=== PATIENT | male | born 1945 | race Two or more races ===

== ENCOUNTER 2016-07-13 04:05 | Inpatient (IN) | payer MEDICAID ==
[2016-07-13 04:34] VITALS: BP 148/88
[2016-07-13] MEDS ORDERED: HYDROmorphone 1 mg/mL 1mL Syr IVP PRN (05:03)
[2016-07-13] MEDS: Sodium Chloride 0.9% 1,000 ML IV SCH (05:25)
[2016-07-13] MEDS ORDERED: Pneumococcal Vaccine 0.5 mL Vial IM ONE (10:00)
[2016-07-13 10:06] LABS: % BASOPHILS 0.3 % (0.0-2.0); % EOSINOPHILS 1.1 % (0.0-5.0); % LYMPHOCYTES 14.2 % (20.0-50.0); % MONOCYTES 5.2 % (2.0-10.0); % NEUTROPHILS 79.2 % (40.0-80.0); HEMATOCRIT 43.1 % (39.0-49.0); HEMOGLOBIN 14.5 gm/dL (12.6-17.4); MEAN CELL VOLUME 86.5 fl (80-99); MEAN CORPUSCULAR HEMOGLOBIN 29.1 pg (27.0-31.0); MEAN CORPUSCULAR HGB CONC 33.6 pg (28.0-36.0); MEAN PLATELET VOLUME 9.3 fl; NEUTROPHILE ABSOLUTE 9.3 Th/cmm (1.8-8.0); PLATELET COUNT 217 Th/cmm (150-400); RED BLOOD COUNT 4.98 Mil/cmm (3.80-5.80); RED CELL DISTRIBUTION WIDTH 13.5 % (11.5-20.0); WHITE BLOOD COUNT 11.6 Th/cmm (4.8-10.8)
--- NOTE | 2016-07-13 10:07 | Diagnostic Imaging Report ---
KUB History: Small bowel obstruction Comparison: None Findings: Few dilated loops of small bowel are seen including dialysis small bowel loops with fluid contents along the left hemiabdomen. Degenerative changes of the spine are noted. IMPRESSION: Few dilated loops of small bowel noted. Findings are nonspecific, however, a partial small bowel obstructive process cannot be excluded. If clinically indicated CT examination preferably with oral contrast or small bowel follow-through procedure may be obtained for further assessment.
[2016-07-13 10:27] LABS: ALKALINE PHOSPHATASE 62 U/L (34-104); ANION GAP 11.1 (7.0-16.0); BILIRUBIN,TOTAL 0.6 mg/dL (0.3-1.0); BUN - UREA NITROGEN 9 mg/dL (7-25); BUN/CREATININE RATIO 11.3; CALCIUM SERUM 9.6 mg/dL (8.6-10.3); CARBON DIOXIDE 24.3 mEq/L (21.0-31.0); CHLORIDE 103 mEq/L (98-107); CREATININE - SERUM 0.8 mg/dL (0.7-1.3); GLUCOSE 162 mg/dL (70-105); POTASSIUM SERUM 3.4 mEq/L (3.5-5.1); SGOT 23 U/L (13-39); SGPT/ALT 23 U/L (7-52); SODIUM SERUM 135 mEq/L (136-145)
--- NOTE | 2016-07-13 11:03 | General Progress Note ---
Subjective - Review of Systems Service Date: 07/13/16 Subjective: small bowel series ordered Objective - Results Result Diagrams: 07/13/16 09:30 07/13/16 09:30 Recent Labs: Laboratory Last Values WBC 11.6 Th/cmm (4.8-10.8) H 07/13/16 09:30 RBC 4.98 Mil/cmm (3.80-5.80) 07/13/16 09:30 Hgb 14.5 gm/dL (12.6-17.4) 07/13/16 09:30 Hct 43.1 % (39.0-49.0) 07/13/16 09:30 MCV 86.5 fl (80-99) 07/13/16 09:30 MCH 29.1 pg (27.0-31.0) 07/13/16 09:30 MCHC Differential 33.6 pg (28.0-36.0) 07/13/16 09:30 RDW 13.5 % (11.5-20.0) 07/13/16 09:30 Plt Count 217 Th/cmm (150-400) 07/13/16 09:30 MPV 9.3 fl 07/13/16 09:30 Neutrophils % 79.2 % (40.0-80.0) 07/13/16 09:30 Lymphocytes % 14.2 % (20.0-50.0) L 07/13/16 09:30 Monocytes % 5.2 % (2.0-10.0) 07/13/16 09:30 Eosinophils % 1.1 % (0.0-5.0) 07/13/16 09:30 Basophils % 0.3 % (0.0-2.0) 07/13/16 09:30 Sodium 135 mEq/L (136-145) L 07/13/16 09:30 Potassium 3.4 mEq/L (3.5-5.1) L 07/13/16 09:30 Chloride 103 mEq/L (98-107) 07/13/16 09:30 Carbon Dioxide 24.3 mEq/L (21.0-31.0) 07/13/16 09:30 Anion Gap 11.1 (7.0-16.0) 07/13/16 09:30 BUN 9 mg/dL (7-25) 07/13/16 09:30 Creatinine 0.8 mg/dL (0.7-1.3) 07/13/16 09:30 Est GFR ( Amer) TNP 07/13/16 09:30 Est GFR (Non-Af Amer) TNP 07/13/16 09:30 BUN/Creatinine Ratio 11.3 07/13/16 09:30 Glucose 162 mg/dL (70-105) H 07/13/16 09:30 POC Glucose 150 MG/DL (70 - 105) H 07/13/16 07:32 Calcium 9.6 mg/dL (8.6-10.3) 07/13/16 09:30 Total Bilirubin 0.6 mg/dL (0.3-1.0) 07/13/16 09:30 AST 23 U/L (13-39) 07/13/16 09:30 ALT 23 U/L (7-52) 07/13/16 09:30 Alkaline Phosphatase 62 U/L (34-104) 07/13/16 09:30 Total Protein 8.2 gm/dL (6.0-8.3) 07/13/16 09:30 Albumin 4.1 gm/dL (4.2-5.5) L 07/13/16 09:30 Globulin 4.1 gm/dL 07/13/16 09:30 Albumin/Globulin Ratio 1.0 (1.0-1.8) 07/13/16 09:30 - Physical Exam Vitals and I&O: Vital Signs Temp 97.7 F 07/13/16 07:47 Pulse 81 07/13/16 07:47 Resp 19 07/13/16 08:00 BP 135/85 07/13/16 07:47 Pulse Ox 92 07/13/16 07:47 Intake & Output 07/12/16 07/13/16 07/13/16 18:59 06:59 18:59 Weight (lbs) 97.522 kg Other: # Voids 1 Active Medications: Current Medications Clonidine HCl (Catapres) 0.1 mg PO Q8HR PRN PRN Reason: SBP >160 Stop: 09/11/16 08:14 Hydromorphone HCl (Dilaudid) 1 mg IVP Q8HR PRN PRN Reason: Pain (Moderate) Stop: 09/11/16 05:02 Last Admin: 07/13/16 05:40 Dose: 1 mg Sodium Chloride (Nacl 0.9%) 1,000 mls @ 100 mls/hr IV .Q10H [facility] Stop: 09/11/16 05:01 Last Admin: 07/13/16 05:25 Dose: 100 mls/hr Insulin Aspart (Novolog Insulin Sliding Scale) 0 units SUBQ Q6HR [facility] PRN Reason: Protocol Stop: 09/11/16 11:59 Pantoprazole Sodium (Protonix) 40 mg IVP DAILY [facility] Stop: 09/11/16 08:59 Last Admin: 07/13/16 09:44 Dose: 40 mg
--- NOTE | 2016-07-13 11:50 | History & Physical ---
CHIEF COMPLAINT: Abdominal pain. HISTORY OF PRESENT ILLNESS: This is the case of a 70-year-old male who referred that 2 days ago, he started with right-sided abdominal pain. The patient referred the pain increased, reason why he went to [facility] Emergency Room for evaluation and treatment. During the evaluation in [facility], CT scan was done and after review, the diagnosis of small bowel obstruction was done. The patient was transferred to this hospital to continue treatment. PAST MEDICAL HISTORY: The patient has past medical history of diabetes mellitus, hypertension, BPH, gastritis. SOCIAL HISTORY: The patient lives with family at home. The patient denies use of alcohol or drugs. MEDICATIONS: Reviewed. ALLERGIES: No known allergies. REVIEW OF SYSTEMS: LUNGS: The patient denies shortness of breath. HEART: The patient denies chest pain. ABDOMEN: The patient referred abdominal pain in the right side and some abdominal distention. EXTREMITIES: Unremarkable. PHYSICAL EXAMINATION: GENERAL: Does reveal a fairly nourished and developed male, awake, alert, in no acute distress. HEENT: Head is normocephalic and atraumatic. Eyes: Pupils reactive to light. Nose: No evidence of nasal obstruction. Ears: No evidence of any discharge. Mouth: Fairly ____. LUNGS: Bilateral air entry. No wheezing, no crackles. HEART: Regular rate and rhythmic. ABDOMEN: Soft, little bit distended. Bowel sound is diminished. EXTREMITIES: No edema. NEUROLOGICAL: The patient is awake, alert, in no acute distress. Nerves 2-12 grossly intact. No neurological deficit at this moment. IMPRESSION: 1. Small bowel obstruction. 2. Diabetes mellitus. 3. Hypertension. 4. Benign prostatic hypertrophy. 5. Gastritis. PLAN: 1. The patient will be admitted in medical surgical floor. 2. NG tube. 3. N.p.o. 4. Consult with GI. 5. Insulin sliding scale. 6. CBC, CMP at a.m. 7. IV normal saline. JOB# [id number]
[2016-07-13] MEDS: INSULIN ASPART SLIDING SCALE 100 UNITS/ML UNIT SUBQ SCH ×2 (12:17→18:24)
[2016-07-13] MEDS ORDERED: Diatrizoate Meglumine/Diatri 30 mL Sol PO ONE (13:39)
--- NOTE | 2016-07-13 17:39 | Admit Criteria Form ---
Admit Criteria Forms - Admit Criteria Diagnosis: ABDOMINAL PAIN Clinical Indications for Admission to Inpatient Care (Place 'X' for any and all applicable criteria): Admission is indicated for ANY ONE of the following(1)(2)(3)(4)(5): [X]I. Inpatient admission required rather than observation care (Also use Abdominal Pain: Observation Care, as appropriate) because of ANY ONE of the following: [ ]a) Severe pain requiring acute inpatient management [ ]b) Identification of etiology/finding that requires inpatient care (eg, aortic dissection, free air) [ ]c) Absent bowel sounds with complete ileus(6) [ ]d) Suspected toxic megacolon [ ]e) Severe electrolyte abnormalities requiring inpatient care [ ]f) High fever or infection requiring inpatient admission as indicated by ANY ONE of following(7)(8): [ ] i) Appropriate outpatient or observational care antimicrobial treatment unavailable, not effective, or not feasible [ ] ii) Documented bacteremia [ ] iii) Temperature > 104.9 degrees F (oral) [ ] iv) T >103.1 F (oral) or < 96.8 F(rectal) that does not respond to all emergency treatment measures [X]g) Signs of intestinal obstruction [B] [ ]h) Hemodynamic instability [ ]i) IV fluid to replace significant ongoing losses (greater than 3 L/m2 per day) (12)(13) [ ]j) Percutaneous or open drainage (eg, abscess, biliary tract ) procedures [ ]k) Parenteral nutrition regimen that must be implemented on inpatient basis [ ]l) Other condition,treatment or monitoring requiring inpatient admission. [ ]II. Peritoneal signs present [ ]III. Surgery needed that cannot be performed on an ambulatory basis. [X]IV. Evaluation requires patient to not eat or drink for extended period ( eg, more than 24 hours). [ ]V. Contraindications and/or Inappropriate clinical situations for Observational Care in patients with abdominal pain, when ANY ONE of the following is required: [ ]a) Thorough evaluation is required to prevent catastrophic events due to delays in diagnosing (e.g.Mesenteric ischemia) 1,3 [ ]b) Patient with severe pathology or with chronic symptoms unlikely to improve in the ED stay (3) [ ]. General contraindications and/or Inappropriate clinical situations for Observational Care in patients with abdominal pain, when ANY ONE of the following is required: [ ]a) Prediction of prolongation of LOS based on ANY ONE of the following may be considered as a contraindication for observational care 2, 3, 4, 5, 6, 7, 8, 9, 10, 11 [ ]i) Age > 65 yrs. [ ]ii) Patient arriving by ambulance [ ]iii) Patient with high acuity [ ]iv) Patient requiring vital sign monitoring [ ]v) Patient on IV medication [ ]b) Systolic blood pressures 180mmHg 3,12 [ ]c) Patient with altered mental status including delirium and other alteration of consciousness, (3) [ ]d) Patient whose discharge disposition will be to a fci home or rehabilitation home should not be managed in Emergency Department Observation Unit. CMS rule requires 3 days hospital stay before such placement.3,13 [ ]e) Patient with failure to thrive due to broad array of etiologies 3,16,17 [ ]f) Inability to ambulate 3,14 Extended stay beyond goal length of stay may be needed for(2)(3): [ ]a) Persistent abdominal pain with suspected intra-abdominal process [ ]b) Diagnosed condition requiring continued stay (e.g., pancreatitis, complicated diverticulitis) [ ]c) Surgery (e.g., colectomy) The original [employer] content created by [employer] has been revised. The portions of the content which have been revised are identified through the use of italic text or in bold, and [facility] has neither reviewed nor approved the modified material.All other unmodified content is copyright [facility]. Please see references footnoted in the original [facility] edition 2016 Admit Criteria Met?: Yes
[2016-07-13] MEDS ORDERED: Albuterol Nebulizer 2.5mg/3mL HHN PRN (23:48)
--- NOTE | 2016-07-14 00:25 | Consultation ---
REASON FOR CONSULTATION: Small-bowel obstruction. HISTORY OF PRESENT ILLNESS: This consult was obtained through the courtesy of Dr. Jamil Mustafa for this 70-year-old with history of diabetes, hypertension, benign prostatic hypertrophy, presented to [place] with abdominal pain and nausea of 1 day duration, found to have possible small-bowel obstruction. The patient was sent here for further evaluation. The patient denies any hematemesis, melena or hematochezia. The patient denies any weight loss. He had a bowel movement yesterday. PAST MEDICAL HISTORY: Diabetes, hypertension, hyperlipidemia. PAST SURGICAL HISTORY: Negative. SOCIAL HISTORY: Denies smoking, alcohol or drugs. FAMILY HISTORY: Mother of cancer, but he states it is not GI. ALLERGIES: No known drug allergies. MEDICATIONS: The patient is on Dilaudid, Protonix, clonidine. REVIEW OF SYSTEMS: No weight loss, no hematemesis, no melena, no hematochezia. He has abdominal pain, was diffuse of 2 days' duration. PHYSICAL EXAMINATION: GENERAL: The patient is awake, oriented to self, place, and time, in moderate distress secondary to pain. He has an NG tube to suction. VITAL SIGNS: Blood pressure 135/85, heart rate 81, respiratory rate 19, temperature is 97.8. HEAD AND NECK: Pupils reactive to light and accommodation. Extraocular muscles intact. Sclerae anicteric. Conjunctivae not pale. Oral cavity, no lesion. NECK: Supple. No jugular venous distention. No carotid bruit or lymph node. CHEST: Good respiratory movements. LUNGS: Clear to auscultation. CARDIOVASCULAR SYSTEM: Regular rate and rhythm. No murmur or gallop. ABDOMEN: Firm. Distended. There are decreased bowel sounds. EXTREMITIES: Lower extremities, no edema. Good peripheral pulses. CENTRAL NERVOUS SYSTEM: Grossly nonfocal. LABORATORY DATA: No new labs here. At [place], white count was normal. CAT scan done at [place] showed distended loops of bowel, some area of transition, some fecalization of intestine and decompressed distal parts, suggestive of partial obstruction. IMPRESSION: A 70-year-old presenting with abdominal pain and nausea, possible bowel obstruction. ASSESSMENT AND PLAN: Possible small-bowel obstruction, rule out partial obstruction versus ileus versus enteritis versus fecal impaction. RECOMMENDATIONS: 1. N.p.o. 2. NG to low intermittent suction. 3. Surgical consultation. 4. Small bowel follow through. 4. Further recommendations to follow. Other medical problems such as diabetes, hypertension and benign prostatic hypertrophy per Dr. Jamil Mustafa. Thank you, Dr. Jamil Mustafa, for allowing me to participate in the care of the patient. If you have any further questions, please let me know. JOB# [id number] [email or web address]
[2016-07-14 05:36] LABS: % BASOPHILS 0.6 % (0.0-2.0); % EOSINOPHILS 1.9 % (0.0-5.0); % MONOCYTES 6.6 % (2.0-10.0); % NEUTROPHILS 69.9 % (40.0-80.0); HEMOGLOBIN 14.3 gm/dL (12.6-17.4); MEAN CELL VOLUME 86.6 fl (80-99); MEAN CORPUSCULAR HEMOGLOBIN 29.4 pg (27.0-31.0); MEAN PLATELET VOLUME 9.1 fl; NEUTROPHILE ABSOLUTE 6.4 Th/cmm (1.8-8.0); PLATELET COUNT 209 Th/cmm (150-400); RED BLOOD COUNT 4.85 Mil/cmm (3.80-5.80); RED CELL DISTRIBUTION WIDTH 13.8 % (11.5-20.0); WHITE BLOOD COUNT 9.3 Th/cmm (4.8-10.8)
[2016-07-14] MEDS: Sodium Chloride 0.9% 1,000 ML IV SCH (05:57)
[2016-07-14 05:58] LABS: ALKALINE PHOSPHATASE 56 U/L (34-104); ANION GAP 8.9 (7.0-16.0); BILIRUBIN,TOTAL 0.7 mg/dL (0.3-1.0); BUN - UREA NITROGEN 10 mg/dL (7-25); BUN/CREATININE RATIO 11.1; CALCIUM SERUM 9.5 mg/dL (8.6-10.3); CARBON DIOXIDE 25.5 mEq/L (21.0-31.0); CHLORIDE 106 mEq/L (98-107); CREATININE - SERUM 0.9 mg/dL (0.7-1.3); GLUCOSE 136 mg/dL (70-105); POTASSIUM SERUM 3.4 mEq/L (3.5-5.1); SGOT 20 U/L (13-39); SGPT/ALT 20 U/L (7-52); SODIUM SERUM 137 mEq/L (136-145)
[2016-07-14] MEDS: INSULIN ASPART SLIDING SCALE 100 UNITS/ML UNIT SUBQ SCH ×4 (05:58→18:59)
--- NOTE | 2016-07-14 07:57 | General Progress Note ---
Subjective - Review of Systems Service Date: 07/14/26 Subjective: I feel better Objective - Results Result Diagrams: 07/14/16 05:06 07/14/16 05:06 Recent Labs: Laboratory Last Values WBC 9.3 Th/cmm (4.8-10.8) 07/14/16 05:06 RBC 4.85 Mil/cmm (3.80-5.80) 07/14/16 05:06 Hgb 14.3 gm/dL (12.6-17.4) 07/14/16 05:06 Hct 42.0 % (39.0-49.0) 07/14/16 05:06 MCV 86.6 fl (80-99) 07/14/16 05:06 MCH 29.4 pg (27.0-31.0) 07/14/16 05:06 MCHC Differential 34.0 pg (28.0-36.0) 07/14/16 05:06 RDW 13.8 % (11.5-20.0) 07/14/16 05:06 Plt Count 209 Th/cmm (150-400) 07/14/16 05:06 MPV 9.1 fl 07/14/16 05:06 Neutrophils % 69.9 % (40.0-80.0) 07/14/16 05:06 Lymphocytes % 21.0 % (20.0-50.0) 07/14/16 05:06 Monocytes % 6.6 % (2.0-10.0) 07/14/16 05:06 Eosinophils % 1.9 % (0.0-5.0) 07/14/16 05:06 Basophils % 0.6 % (0.0-2.0) 07/14/16 05:06 Sodium 137 mEq/L (136-145) 07/14/16 05:06 Potassium 3.4 mEq/L (3.5-5.1) L 07/14/16 05:06 Chloride 106 mEq/L (98-107) 07/14/16 05:06 Carbon Dioxide 25.5 mEq/L (21.0-31.0) 07/14/16 05:06 Anion Gap 8.9 (7.0-16.0) 07/14/16 05:06 BUN 10 mg/dL (7-25) 07/14/16 05:06 Creatinine 0.9 mg/dL (0.7-1.3) 07/14/16 05:06 Est GFR ( Amer) TNP 07/14/16 05:06 Est GFR (Non-Af Amer) TNP 07/14/16 05:06 BUN/Creatinine Ratio 11.1 07/14/16 05:06 Glucose 136 mg/dL (70-105) H 07/14/16 05:06 POC Glucose 128 MG/DL (70 - 105) H 07/14/16 00:00 Calcium 9.5 mg/dL (8.6-10.3) 07/14/16 05:06 Total Bilirubin 0.7 mg/dL (0.3-1.0) 07/14/16 05:06 AST 20 U/L (13-39) 07/14/16 05:06 ALT 20 U/L (7-52) 07/14/16 05:06 Alkaline Phosphatase 56 U/L (34-104) 07/14/16 05:06 Total Protein 7.7 gm/dL (6.0-8.3) 07/14/16 05:06 Albumin 3.8 gm/dL (4.2-5.5) L 07/14/16 05:06 Globulin 3.9 gm/dL 07/14/16 05:06 Albumin/Globulin Ratio 1.0 (1.0-1.8) 07/14/16 05:06 - Physical Exam Vitals and I&O: Vital Signs Temp 99 F 07/14/16 04:00 Pulse 85 07/14/16 07:32 Resp 20 07/14/16 07:32 BP 128/76 07/14/16 04:00 Pulse Ox 93 07/14/16 07:32 Intake & Output 07/13/16 07/14/16 07/14/16 18:59 06:59 18:59 Intake Total 1000 Balance 1000 Intake: Intake, IV Amount 1000 Sodium Chloride 0.9% 1, 1000 000 ml @ 100 mls/hr IV . Q10H [facility] Rx#:[id number] Other: # Voids 1 2 # Bowel Movements 2 1 Active Medications: Current Medications Albuterol Sulfate (Albuterol 2.5mg/3ml Neb Ud) 2.5 mg HHN Q4H PRN PRN Reason: cough Stop: 09/11/16 23:47 Last Admin: 07/14/16 00:58 Dose: 2.5 mg Clonidine HCl (Catapres) 0.1 mg PO Q8HR PRN PRN Reason: SBP >160 Stop: 09/11/16 08:14 Hydromorphone HCl (Dilaudid) 1 mg IVP Q8HR PRN PRN Reason: Pain (Moderate) Stop: 09/11/16 05:02 Last Admin: 07/13/16 05:40 Dose: 1 mg Sodium Chloride (Nacl 0.9%) 1,000 mls @ 100 mls/hr IV .Q10H [facility] Stop: 09/11/16 05:01 Last Admin: 07/14/16 05:57 Dose: 100 mls/hr Insulin Aspart (Novolog Insulin Sliding Scale) 0 units SUBQ Q6HR [facility] PRN Reason: Protocol Stop: 09/11/16 11:59 Last Admin: 07/14/16 06:24 Dose: Not Given Pantoprazole Sodium (Protonix) 40 mg IVP DAILY [facility] Stop: 09/11/16 08:59 Last Admin: 07/13/16 09:44 Dose: 40 mg General: Alert, Oriented x3, Cooperative, No acute distress HEENT: Atraumatic Neck: Supple Cardiovascular: Regular rate Lungs: Clear to auscultation Abdomen: Bowel sounds, Soft Extremities: Other (No edema) Neurological: Normal gait Skin: Other ([place] and dry) Psych/Mental Status: Mental status NL Assessment/Plan - Assessment Assessment: Patient is awake, alert, in no acute distress. Dx: SBO. Today BS is better and had 3 bowel movement. - Plan Plan: NG tube will be DC. Soft diet is started.
--- NOTE | 2016-07-14 10:39 | Diagnostic Imaging Report ---
Small bowel follow-through The colon abdominal distention, pain Water-soluble contrast was instilled into the stomach per nasogastric tube. The exam demonstrates delayed gastric emptying. Sequential radiographs demonstrate progression of contrast through nondilated small bowel. Contrast is seen within nondilated large bowel and within the rectal region at 6 hours. IMPRESSION: 1. Delayed gastric emptying. Significance should be correlated clinically. No definite evidence of kushal obstruction.
--- NOTE | 2016-07-14 14:09 | General Progress Note ---
Subjective - Review of Systems Service Date: 07/14/16 Events since last encounter: labs ok SBO series - no obst had BM, pain is less start oral intake Subjective: small bowel series ordered Objective - Results Result Diagrams: 07/14/16 05:06 07/14/16 05:06 Recent Labs: Laboratory Last Values WBC 9.3 Th/cmm (4.8-10.8) 07/14/16 05:06 RBC 4.85 Mil/cmm (3.80-5.80) 07/14/16 05:06 Hgb 14.3 gm/dL (12.6-17.4) 07/14/16 05:06 Hct 42.0 % (39.0-49.0) 07/14/16 05:06 MCV 86.6 fl (80-99) 07/14/16 05:06 MCH 29.4 pg (27.0-31.0) 07/14/16 05:06 MCHC Differential 34.0 pg (28.0-36.0) 07/14/16 05:06 RDW 13.8 % (11.5-20.0) 07/14/16 05:06 Plt Count 209 Th/cmm (150-400) 07/14/16 05:06 MPV 9.1 fl 07/14/16 05:06 Neutrophils % 69.9 % (40.0-80.0) 07/14/16 05:06 Lymphocytes % 21.0 % (20.0-50.0) 07/14/16 05:06 Monocytes % 6.6 % (2.0-10.0) 07/14/16 05:06 Eosinophils % 1.9 % (0.0-5.0) 07/14/16 05:06 Basophils % 0.6 % (0.0-2.0) 07/14/16 05:06 Sodium 137 mEq/L (136-145) 07/14/16 05:06 Potassium 3.4 mEq/L (3.5-5.1) L 07/14/16 05:06 Chloride 106 mEq/L (98-107) 07/14/16 05:06 Carbon Dioxide 25.5 mEq/L (21.0-31.0) 07/14/16 05:06 Anion Gap 8.9 (7.0-16.0) 07/14/16 05:06 BUN 10 mg/dL (7-25) 07/14/16 05:06 Creatinine 0.9 mg/dL (0.7-1.3) 07/14/16 05:06 Est GFR ( Amer) TNP 07/14/16 05:06 Est GFR (Non-Af Amer) TNP 07/14/16 05:06 BUN/Creatinine Ratio 11.1 07/14/16 05:06 Glucose 136 mg/dL (70-105) H 07/14/16 05:06 POC Glucose 210 MG/DL (70 - 105) H 07/14/16 12:03 Calcium 9.5 mg/dL (8.6-10.3) 07/14/16 05:06 Total Bilirubin 0.7 mg/dL (0.3-1.0) 07/14/16 05:06 AST 20 U/L (13-39) 07/14/16 05:06 ALT 20 U/L (7-52) 07/14/16 05:06 Alkaline Phosphatase 56 U/L (34-104) 07/14/16 05:06 Total Protein 7.7 gm/dL (6.0-8.3) 07/14/16 05:06 Albumin 3.8 gm/dL (4.2-5.5) L 07/14/16 05:06 Globulin 3.9 gm/dL 07/14/16 05:06 Albumin/Globulin Ratio 1.0 (1.0-1.8) 07/14/16 05:06 - Physical Exam Vitals and I&O: Vital Signs Temp 98.7 F 07/14/16 11:50 Pulse 95 07/14/16 11:50 Resp 19 07/14/16 11:50 BP 144/71 07/14/16 11:50 Pulse Ox 95 07/14/16 11:50 Intake & Output 07/13/16 07/14/16 07/14/16 18:59 06:59 18:59 Intake Total 1000 Balance 1000 Intake: Intake, IV Amount 1000 Sodium Chloride 0.9% 1, 1000 000 ml @ 100 mls/hr IV . Q10H [facility] Rx#:[id number] Other: # Voids 1 2 # Bowel Movements 2 1 Active Medications: Current Medications Albuterol Sulfate (Albuterol 2.5mg/3ml Neb Ud) 2.5 mg HHN Q4H PRN PRN Reason: cough Stop: 09/11/16 23:47 Last Admin: 07/14/16 00:58 Dose: 2.5 mg Clonidine HCl (Catapres) 0.1 mg PO Q8HR PRN PRN Reason: SBP >160 Stop: 09/11/16 08:14 Hydromorphone HCl (Dilaudid) 1 mg IVP Q8HR PRN PRN Reason: Pain (Moderate) Stop: 09/11/16 05:02 Last Admin: 07/13/16 05:40 Dose: 1 mg Sodium Chloride (Nacl 0.9%) 1,000 mls @ 100 mls/hr IV .Q10H [facility] Stop: 09/11/16 05:01 Last Admin: 07/14/16 05:57 Dose: 100 mls/hr Insulin Aspart (Novolog Insulin Sliding Scale) 0 units SUBQ Q6HR [facility] PRN Reason: Protocol Stop: 09/11/16 11:59 Last Admin: 07/14/16 12:04 Dose: Not Given Pantoprazole Sodium (Protonix) 40 mg IVP DAILY [facility] Stop: 09/11/16 08:59 Last Admin: 07/14/16 09:04 Dose: 40 mg
[2016-07-15] MEDS: INSULIN ASPART SLIDING SCALE 100 UNITS/ML UNIT SUBQ SCH ×2 (00:39→06:26)
[2016-07-15 09:02] LABS: % BASOPHILS 0.4 % (0.0-2.0); % EOSINOPHILS 5.1 % (0.0-5.0); % LYMPHOCYTES 26.5 % (20.0-50.0); % MONOCYTES 7.2 % (2.0-10.0); % NEUTROPHILS 60.8 % (40.0-80.0); HEMOGLOBIN 14.3 gm/dL (12.6-17.4); MEAN CELL VOLUME 87.1 fl (80-99); MEAN CORPUSCULAR HEMOGLOBIN 29.1 pg (27.0-31.0); MEAN CORPUSCULAR HGB CONC 33.4 pg (28.0-36.0); MEAN PLATELET VOLUME 9.3 fl; NEUTROPHILE ABSOLUTE 4.5 Th/cmm (1.8-8.0); PLATELET COUNT 198 Th/cmm (150-400); RED BLOOD COUNT 4.93 Mil/cmm (3.80-5.80); RED CELL DISTRIBUTION WIDTH 13.5 % (11.5-20.0)
[2016-07-15 09:12] LABS: WHITE BLOOD COUNT 7.3 Th/cmm (4.8-10.8)
[2016-07-15 09:16] LABS: ALKALINE PHOSPHATASE 55 U/L (34-104); ANION GAP 11.1 (7.0-16.0); BILIRUBIN,TOTAL 0.8 mg/dL (0.3-1.0); BUN - UREA NITROGEN 14 mg/dL (7-25); BUN/CREATININE RATIO 15.6; CALCIUM SERUM 9.2 mg/dL (8.6-10.3); CARBON DIOXIDE 23.1 mEq/L (21.0-31.0); CHLORIDE 107 mEq/L (98-107); CREATININE - SERUM 0.9 mg/dL (0.7-1.3); GLUCOSE 236 mg/dL (70-105); POTASSIUM SERUM 3.2 mEq/L (3.5-5.1); SGOT 27 U/L (13-39); SGPT/ALT 22 U/L (7-52); SODIUM SERUM 138 mEq/L (136-145)
--- NOTE | 2016-07-15 11:31 | Diagnostic Imaging Report ---
Radionuclide gastric emptying scan 850 uCi of technetium sulfur colloid mixed with scrambled legs administered orally. Sequential scintigraphic images obtained through 90 minutes. Gastric retention at 60 minutes equals approximately 18%. Gastric retention at 120 minutes equals 1%. IMPRESSION: 1. No significant abnormal gastric retention.
--- NOTE | 2016-07-19 22:52 | Discharge Summary ---
CHIEF COMPLAINT: Abdominal pain. HISTORY OF PRESENT ILLNESS: This is the case of a 70-year-old male who went to ER of [facility] secondary to right-sided abdominal pain. During evaluation at [facility], diagnosis of SBO was done. The patient was transferred to [facility] to continue treatment. HOSPITAL COURSE AND TREATMENT: This patient was admitted in the medical-surgical floor. He was started on normal saline. NG tube was placed. The patient was put on n.p.o. Consults with GI and Surgery were done and recommendations were followed. The patient was on insulin sliding scale. The next day after hospitalization, the patient's diet was changed to a clear liquid diet. After 4 days in the hospital, the patient was eating well, the patient had bowel movement and no more abdominal distention. After 4 days in the hospital, it was considered the patient received the maximum benefit of hospitalization and he could be sent home. At the moment of the discharge, the patient was awake, alert, no abdominal distention, the patient having bowel movement, and in no acute distress. CONSULTANTS IN THIS CASE: GI and Surgery. DISPOSITION: The patient is sent home to continue care with primary care physician. DIAGNOSES: 1. Small-bowel obstruction. 2. Diabetes mellitus. 3. Hypertension. 4. Benign prostatic hypertrophy. 5. Gastritis. JOB# [id number]
== END 2016-07-15 10:35 | disposition home or self-care (01) | DRG 222 ==
LOC: MSI 04:05
PROVIDERS: ADMIT General Practice; ATTEND General Practice
PROC: 0DH67UZ Insertion of Feeding Device into Stomach, Via Natural or Artificial Opening (ICD-10-PCS; principal; 2016-07-15)
DX: K56.60 Unspecified intestinal obstruction (principal); E11.9 Type 2 diabetes mellitus without complications; I10 Essential (primary) hypertension; N40.0 Benign prostatic hyperplasia without lower urinary tract symptoms; K29.70 Gastritis, unspecified, without bleeding; E78.5 Hyperlipidemia, unspecified
CPT/HCPCS: 36415-UA; 74000-TC; 74250-TC; 78264-TC; 80053-TC; 82948-90; 83036-90; 85025-TC; 94640; 94760; A9541; C9113; J1170; J1815; J7030; J7613; Z7610